=== PATIENT | male | born 2000 | race Caucasian/White ===

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

== ENCOUNTER → 2019-02-10 | Outpatient (CLI) | payer OTHER ==
[2019-02-10 18:02] LABS: ALBUMIN 4.2 g/dL (3.4-5.0); CREATININE 1.1 mg/dL (0.6-1.3); POTASSIUM 3.5 mmol/L (3.5-5.1); TOTAL BILIRUBIN 0.4 mg/dL (<0.1-1.0); TOTAL PROTEIN 7.6 g/dL (6.4-8.2)
== END ==
LOC: M.LAB 17:02
PROVIDERS: Pediatrics
DX: R89.9 Unspecified abnormal finding in specimens from other organs, systems and tissues (principal)

== ENCOUNTER 2019-11-08 21:00 | Emergency (ER) | payer OTHER ==
[~2019-11-08] VITALS: Ht 185.4 cm; Wt 90.7 kg
[2019-11-08] MEDS ORDERED: AMOXICILLIN875 MG PO (21:38)
[2019-11-08] MEDS ORDERED: HYDROCODONE-ACE15 ML PO (21:38)
[2019-11-08 21:57] VITALS: BP 133/67
== END 2019-11-08 22:00 | disposition home or self-care (01) ==
LOC: M.ERS 21:00
DX: J02.0 Streptococcal pharyngitis (principal)